=== PATIENT | male | born 1945 | race Caucasian/White ===

== ENCOUNTER 2024-08-30 17:53 | Observation (INO) | payer MEDICARE ==
[~2024-08-30] VITALS: Ht 175.3 cm; Wt 75.0 kg
--- NOTE | 2024-08-30 18:07 | ELECTROCARDIOGRAPH REPORT ---
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 Remi Doyle Measurements Intervals [place] Rate: 86 P: 0 [place]: 237 QRS: -40 QRSD: 99 T: 22 QT: 415 QTc: 497 Interpretive Statements Sinus rhythm Ventricular bigeminy Prolonged [place] interval Left axis deviation Electronically Signed On 08-30-2024 19:21:[address] Remi Doyle Please click the below link to view image of tracing.
--- NOTE | 2024-08-30 18:26 | RADIOLOGY REPORT ---
Clinical History CP Comparison None Without Contrast TAMMYSUSSY LARA, [id number] Technique: Single view portable chest x-ray Findings: Pericardial pacing pad is seen projecting over the left lower hemithorax. Minimum left basilar atelectasis. The lungs are otherwise unremarkable. No pleural abnormality. Atherosclerotic calcification of thoracic aorta. The cardiomediastinal silhouette is otherwise unrema rkable for an AP view. No acute osseous abnormality. The imaged part of the upper abdomen is unremarkable. Impression: No evidence of acute cardiopulmonary disease This report was electronically signed by César Leone MD on 08/30/2024 6:24:14 PM.
[2024-08-30 18:45] LABS: BASOPHILS # (AUTO) 0.1 X10'3 (0-0.2); BASOPHILS % (AUTO) 0.9 % (0-1); EOSINOPHILS # (AUTO) 0.2 X10'3 (0-0.9); EOSINOPHILS % (AUTO) 3.5 % (0-6); HEMATOCRIT 41.9 % (42.0-52.0); HEMOGLOBIN 14.3 g/dl (14.0-17.9); LYMPHOCYTES # (AUTO) 1.1 X10'3 (1.1-4.8); MEAN CORPUSCULAR HEMOGLOBIN 31.7 PG (27.0-31.0); MEAN CORPUSCULAR HGB CONC 34.1 g/dL (33.0-36.5); MEAN CORPUSCULAR VOLUME 93.1 FL (78-98); MEAN PLATELET VOLUME 8.1 FL (7.4-10.4); MONOCYTES # (AUTO) 0.5 X10'3 (0-0.9); MONOCYTES % (AUTO) 7.4 % (2-12); NEUTROPHILS # (AUTO) 4.7 X10'3 (1.8-7.7); NEUTROPHILS % (AUTO) 71.2 % (42-75); PLATELET COUNT 231 X10'3 (140-440); RED CELL DISTRIBUTION WIDTH 14.2 % (11.5-14.5); WHITE BLOOD COUNT 6.6 X10'3 (4.5-11.0)
[2024-08-30 19:09] LABS: ALANINE AMINOTRANSFERASE 24 U/L (12-78); ALBUMIN 3.5 G/DL (3.4-5.0); ALBUMIN/GLOBULIN RATIO 1.1 (1.1-1.5); ALKALINE PHOSPHATASE 78 IU/L (46-116); ANION GAP 8 (8-16); ASPARTATE AMINO TRANSFERASE 12 U/L (10-37); BILIRUBIN,TOTAL 0.6 MG/DL (0.1-1.0); BLOOD UREA NITROGEN 16 MG/DL (7-18); BUN/CREATININE RATIO 9.9 (10.0-20.0); CALCIUM 8.7 MG/DL (8.5-10.1); CHLORIDE 104 MMOL/L (99-107); CREATININE 1.61 MG/DL (0.60-1.10); GLUCOSE 88 MG/DL (70-104); POTASSIUM 3.9 MMOL/L (3.5-5.1); PRO BRAIN NATRIURETIC PEPTIDE 634 PG/ML (0-450); SODIUM 137 MMOL/L (135-145); TOTAL PROTEIN 6.8 G/DL (6.4-8.2); eCRCL 35 ML/MIN; eGFR 41 ML/MIN
--- NOTE | 2024-08-30 21:41 | Physician Documentation ---
History of Present Illness ~ Chief Complaint: See Chief Complaint Stated Complaint: BRADYCARDIA Time Seen by MD: 18:30 OK to notify your PCP?: Yes Source: patient, RN/MD, EMS, old records Mode of Arrival: EMS Exam Limitations: no limitations, other HPI 79 year old male presents as a transfer from [place] due to brandycardia issues. HPI from [place]: 79 year old male sent to ER for evaluation of brandycardia. I spoke with his PCP who noted HR of 35 in office. BP maintained. He states he has been asymptomatic. No report of chest pain, palpitations, near syncope/syncope. However he was seen at May of this year for syncope. No cardiac referral from that episode. No beta caren use. Medication Reconciliation Allergies: Coded Allergies: No Known Allergies (Unverified , 08/30/24) Scheduled Losartan Potassium (Losartan Potassium), 1 TAB PO DAILY, (Reported) Rosuvastatin Calcium (Rosuvastatin Calcium), 1 TAB PO DAILY, (Reported) Past Medical History Past Medical History: Hypertension, Chronic Kidney Disease Review of Systems All Other Systems at this time: Reviewed and Negative ROS As stated above in the HPI, otherwise all systems are reviewed and negative. Physical Exam Vital Signs: RN Vital Signs have been reviewed: Yes, Temperature: 97.8, Heart Rate: 75, Respiratory Rate: 15, BP: 177/91, Pulse Oximetry: 96, Weight: 75.000 Pulse Oximetry Reflects: adequate oxygenation Physical Exam General: The patient is well developed, well nourished, nontoxic appearing and is in no acute distress. Skin: [place], warm and dry with no rashes. HEENT: Head was normocephalic and atraumatic. Eyes - pupils equal, round, reactive to light and accommodation. Extraocular movements were intact. Conjunctivae were nonicteric. Ears - bilateral tympanic membranes were normal. The mouth and oropharynx were clear with moist mucous membranes. There were no pharyngeal exudates or erythema. Neck: Supple and nontender. There was no jugular venous distention, lymphadenopathy, thyromegaly or masses. Chest: Clear to auscultation bilaterally without wheezes, rales or rhonchi. No accessory muscle use. No dullness to percussion. Heart: Slow heart rate. S1, S2. No murmurs. Palpation of the chest wall was normal. No rubs or thrills. Abdomen: Soft, nontender and nondistended. Positive bowel sounds. No guarding or rebound. No hepatosplenomegaly or palpable masses. Extremities: No cyanosis, clubbing or edema. The patient moves all extremities. Pulses were equal and symmetric. Neurologic: Cranial nerves II-XII were intact. Sensation was intact to light touch throughout. Motor strength was 5/5 in all four extremities. Deep tendon reflexes were intact in both upper and lower extremities. Psychologic: The patient was oriented to person, place and time. The patient demonstrated appropriate judgement and insight. Progress Progress Note 2200: The case was discussed with the hospitalist who was informed on the patients case and kindly agreed to admission. Results/Orders Reviewed/noted all lab results: Yes Results/Orders Orders - GREG DOYLE MD Page Hospitalist (08/30/24 21:54) Fill Out Med Reconciliation (08/30/24 21:54) Completed Orders - GREG DOYLE MD Pt Inr (08/30/24 21:49) PTT (08/30/24 21:49) Troponin (Single) (08/30/24 23:50) Aspirin 81mg Chew Tablet (Aspirin 81mg C (08/30/24 22:15) Laboratory Tests Test 08/30/24 18:36 08/30/24 20:31 White Blood Count 6.6 Red Blood Count 4.50 L Hemoglobin 14.3 Hematocrit 41.9 L Mean Corpuscular Volume 93.1 Mean Corpuscular Hemoglobin 31.7 H Mean Corpuscular Hemoglobin Concent 34.1 Red Cell Distribution Width 14.2 Platelet Count 231 Mean Platelet Volume 8.1 Neutrophils (%) (Auto) 71.2 Lymphocytes (%) (Auto) 17.0 L Monocytes (%) (Auto) 7.4 Eosinophils (%) (Auto) 3.5 Basophils (%) (Auto) 0.9 Neutrophils # (Auto) 4.7 Lymphocytes # (Auto) 1.1 Monocytes # (Auto) 0.5 Eosinophils # (Auto) 0.2 Basophils # (Auto) 0.1 CBC Comment Prothrombin Time 10.9 INR International Normalized Ratio 1.1 Activated Partial Thromboplast Time 29 Coagulation Comments Sodium Level 137 Potassium Level 3.9 Chloride Level 104 Carbon Dioxide Level 25.0 Anion Gap 8 Blood Urea Nitrogen 16 Creatinine 1.61 H Estimated GFR/1.73 m2 41 BUN/Creatinine Ratio 9.9 L Glucose Level 88 Calcium Level 8.7 Magnesium Level 2.3 Total Bilirubin 0.6 Aspartate Amino Transf (AST/SGOT) 12 Alanine Aminotransferase (ALT/SGPT) 24 Alkaline Phosphatase 78 Troponin I High Sensitivity 26 28 Pro-B-Type Natriuretic Peptide 634 H Total Protein 6.8 Albumin 3.5 Globulin 3.3 Albumin/Globulin Ratio 1.1 Chemistry Comments Troponin I High Sens Percent Delta 7 Troponin I Hi Sens Absolute Change 2 Re-Evaluation Re-Evaluation : Re-Evaluation: Improved Progress This patient was transferred from [facility]. Review of the medical record patient received a dose of aspirin. Laboratory work was reobtained. Patient was having bradycardia with a heart rate in the 30s 40s. Upon arrival patient is heart rates in the 70s. Additional fluids were given IV lines were already established labs were drawn. Afterwards I contacted the hospitalist who kindly agreed to admit the patient for further workup and care. Laboratory work showed some renal insufficiency with a creatinine of 1.61 also troponin x2 were both negative. Continuous k 9 handler/ deputy interpretation shows normal sinus rhythm heart rate 70s, no ectopy, normal, my interpretation. Pulse oximetry monitor interpretation shows normal oxygenation at 96% room air, normal, my interpretation. 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 Greg Doyle Measurements Intervals [place] Rate: 86 P: 0 [place]: 237 QRS: -40 QRSD: 99 T: 22 QT: 415 QTc: 497 Interpretive Statements Sinus rhythm Ventricular bigeminy Prolonged [place] interval Left axis deviation Electronically Signed On 08-30-2024 19:21:[address] Greg Doyle Please click the below link to view image of tracing. EKG Date and Time:08/30/241750 Electronically Signed by: GREG DOYLE MD Date and Time: 08/30/241920 Chest X-Ray : Additional Comments Clinical History CP Comparison None Without Contrast SUSSY MUNOZ, [id number] Technique: Single view portable chest x-ray Findings: Pericardial pacing pad is seen projecting over the left lower hemithorax. Minimum left basilar atelectasis. The lungs are otherwise unremarkable. No pleural abnormality. Atherosclerotic calcification of thoracic aorta. The cardiomediastinal silhouette is otherwise unremarkable for an AP view. No acute osseous abnormality. The imaged part of the upper abdomen is unremarkable. Impression: No evidence of acute cardiopulmonary disease This report was electronically signed by César Nye MD on 08/30/2024 6:24:14 PM. Electronically Signed by:CÉSAR NYE MD Date & Time: 08/30/24 182 Heart Score: Heart Score Response (Comments) Value History Slightly Suspicious 0 EKG Repolarization Disturb 1 Age >65 2 Risk Factors 1 or 2 risk factors 1 Troponin Normal limit 0 Total 4 Medical Decision Making Additional info obtained from: old records Differential Dx:Considerations: Include: angina, aortic dissection, chest wall pain, cholelithiasis, CHF, costochondritis, esophageal reflux/spasm, gastritis, herpes zoster, myocardial infarction, pericarditis, pleuritis, pancreatitis, pneumonia, pneumothorax, pulmonary embolus, other Departure Time of Disposition: 22:00 Disposition: 09 ADMITTED INPATIENT Admitted to Inpatient Unit: yes, to hospitalist Admission Level of Care: PCU with Tele Impression: Primary Impression: Bradycardia Condition: Guarded Referrals: NO PRIMARY CARE PROVIDER (PCP) Education Educated: Patient Educated regarding: diagnosis Critical Care Note Total Time (mins): 30 Critical Care Note The very real possibility of a deterioration of this patient's condition required the highest level of my preparedness for sudden, emergent intervention. I provided critical care services, which included medication orders, frequent reevaluations of the patient's condition and response to treatment, ordering and reviewing test results, and discussing the case with various consultants. Excludes time spent performing separately billable procedures. The critical care time associated with the care of the patient was 30. Signature Scribe Signature: Scribed for Greg Doyle MD by Adriana Vega . 08/30/24 22:03 Attestation: The note accurately reflects work and decisions made by me.Greg Doyle MD 08/30/24 21:40 GREG DOYLE MD Aug 30, 2024 21:41 ADRIANA DOUGHERTY Aug 30, 2024 21:59
[2024-08-30 21:54] LABS: MAGNESIUM 2.3 MG/DL (1.5-2.4)
[2024-08-30] MEDS: aspirin 81mg tab.chew PO ONE (22:22)
[2024-08-30 22:45] LABS: APTT 29 SECONDS (22-32); INR 1.1 INR; PROTHROMBIN TIME 10.9 SECONDS (9.0-12.0)
[2024-08-30] MEDS ORDERED: magnesium sulf-water 2g/50mL 50 ML IV PRN (23:25)
[2024-08-30] MEDS ORDERED: mag hydrox/Alum hydrox/simeth 30ml oral suspension PO PRN (23:25)
[2024-08-30] MEDS ORDERED: magnesium hydroxide 30ml (MOM) UD suspension PO PRN (23:25)
[2024-08-30] MEDS ORDERED: ondansetron/PF 4mg/2ml inj IV PRN (23:25)
[2024-08-30] MEDS ORDERED: potassium Cl 20 mEq SR tablet PO PRN ×2 (23:25)
[2024-08-30] MEDS ORDERED: acetaminophen 325mg tablet PO PRN (23:25)
[2024-08-30] MEDS ORDERED: potassium Cl 40MEQ/1/2NS 520ml 520 ML IV PRN (23:25)
[2024-08-30] MEDS ORDERED: magnesium Cl slow-release 64mg tablet PO PRN (23:25)
[2024-08-30] MEDS ORDERED: magnesium sulf-water 4G/100mL 100 ML IV PRN (23:25)
[2024-08-30] MEDS ORDERED: PERFLUTREN PROTEIN-A MICROSPHR (Optison) 0.22 MG/ML 3ML VIAL IV PRN (23:30)
[2024-08-31] MEDS ORDERED: LOSA100T58 PO (01:17)
[2024-08-31] MEDS ORDERED: ROSU40TA89 PO (01:17)
--- NOTE | 2024-08-31 01:29 | HISTORY AND PHYSICAL-Residence ---
History & Physical Providers to CC Resident Creating Document: PIPE MAURO CC: POLLY ZAVALA MD ~ History of Present Illness Reason for Admit\Complaint: Bradycardia History of Present Illness Patient is a 79-year-old male with history of hypertension and stroke who came to the ED transferred from [place] due to bradycardia. According to ED report, patient was transferred due to heart rate between 20-30 bpm. Patient reports that he was at his PCP office, and there they noticed that his heart rate was significantly low, reason why patient was advised to go to the ED. Patient reports that he did not experience any symptoms at all and that he did not have slow heart rate in the past. He does have a history of the stroke in February of last year and he did follow with Dr. Guo after that, reporting that his visit was unremarkable. He does report one episode of lightheadedness 2-3 months ago which did not happen again. Allergies: Coded Allergies: No Known Allergies (Unverified , 08/30/24) Home Medications Home Medications Active Reported Rosuvastatin Calcium 40 Mg Tablet 1 Tab PO DAILY Losartan Potassium 100 Mg Tablet 1 Tab PO DAILY Past Medical History Past Medical History Hypertension Stroke in 02/2024 without sequela Past Surgical History Surgical History Comment Bilateral knee replacement Back surgery Cataracts Family History Family History: FH: dementia MOTHER Valvular heart disease FATHER Past Social History Smoking: Cigarettes (One pack a day since age 14) Alcohol Use: Other (1 or 2 beers/day) Drug Use: None Lives with: Spouse Lives In: Home Occupation: retired ROS ROS All systems were reviewed and found negative except pertinent positives mentioned in HPI Exam Vitals: Vital Signs Date Time Temp Pulse Resp B/P (MAP) Pulse Ox O2 Delivery O2 Flow Rate FiO2 08/31/24 01:19 67 16 161/72 (101) 99 0 08/30/24 23:00 98.1 General: General: awake, alert oriented to place, time, and person HEENT: No pallor present, no icterus, moist mucous membranes Neck: No masses and tenderness Resp: Unlabored. Lungs clear to auscultation bilaterally. Heart: Regular Rate and rhythm, normal S1 and S2 without murmur, rub or gallop Abdomen: Soft and non tender no organomegaly, no guarding and rigidity, bowel sounds present Neuro: No weakness in the upper and lower limb muscles, power of the muscles 5/5 bilateral upper and lower muscles, knee reflex present bilaterally. Cranial nerves intact Extremities: No cyanosis,clubbing or edema Skin: Warm and Dry. No lesions Diagnostic Data Last Recorded Lab Results: 08/30/24183508/30/241835 Diagnostic Data: Laboratory Tests Test 08/30/24 18:36 Prothrombin Time 10.9 SECONDS (9.0-12.0) INR International Normalized Ratio 1.1 INR Activated Partial Thromboplast Time 29 SECONDS (22-32) Coagulation Comments Advance Care Planning Advanced Care plannin - 30 Minutes Additional Plan Patient is a 79-year-old male with history of hypertension and stroke who came to the ED transferred from [place] due to severe bradycardia. Admitted for observation on tele. Asymptomatic bradycardia Elevated proBNP Hypertension History of stroke Patient has remained asymptomatic Heart rate has been stable between 60s and 70s EKG shows normal sinus rhythm with PVCs He does have elevated proBNP but no signs of fluid overload Will obtain echocardiogram in a.m. Will continue tele monitoring Continue home meds. Pending med rec DARCIE, likely prerenal secondary to vasomotor nephropathy No history of kidney disease Creatinine is 1.6 Will obtain kidney ultrasound, urinalysis and spot tests Continue monitoring BMP Code Status: DNR DVT prophylaxis: Heparin Prognosis:Guarded Disposition: Admit as all obs with tele monitoring. Echo in a.m. possible discharge in a.m. Pipe Wang MD Internal Medicine Resident PGY-1 Date of Service: Aug 31, 2024 Billing Provider: POLLY ZAVALA MD Common Visit Codes: [id number] INP/OBS CARE (HIGH) Assessment/Plan Assessment Evaluated the patient with the help of residents. Discussed the case with them. Additionally I reviewed the patient's records labs radiology and provider notes. I have reviewed notes by Admitting resident. Agree with his assessments and plans. I have. Will continue no additional points at this time. Continue the present strategy. PIPE MAURO Aug 31, 2024 01:29 POLLY ZAVALA MD Aug 31, 2024 05:32
[2024-08-31 01:55] VITALS: BP 135/63; PULSE 72; RESP 18; TEMP 97.6; O2SAT 96
[2024-08-31 03:59] VITALS: RESP 18; O2SAT 94
[2024-08-31 06:00] VITALS: BP 160/68; PULSE 56; RESP 16; TEMP 97.9; O2SAT 95
[2024-08-31 06:17] LABS: BILIRUBIN,URINE NEGATIVE (Neg); CLARITY,URINE CLEAR (Clear); COLOR,URINE YELLOW (Yellow); GLUCOSE, URINE NEGATIVE (Neg); KETONES,URINE NEGATIVE (Neg); LEUKOCYTE ESTERASE ,URINE NEGATIVE (Neg); NITRITES, URINE NEGATIVE (Neg); OCCULT BLOOD,URINE NEGATIVE (Neg); PROTEIN,URINE NEGATIVE (Neg); UROBILINOGEN,URINE 0.2 E.U/dL (0.2-1.0)
[2024-08-31 06:22] LABS: BASOPHILS # (AUTO) 0.1 X10'3 (0-0.2); BASOPHILS % (AUTO) 1.2 % (0-1); EOSINOPHILS # (AUTO) 0.3 X10'3 (0-0.9); EOSINOPHILS % (AUTO) 5.4 % (0-6); HEMATOCRIT 40.2 % (42.0-52.0); LYMPHOCYTES # (AUTO) 1.1 X10'3 (1.1-4.8); LYMPHOCYTES % (AUTO) 21.1 % (21-51); MEAN CORPUSCULAR HEMOGLOBIN 32.1 PG (27.0-31.0); MEAN CORPUSCULAR HGB CONC 34.8 g/dL (33.0-36.5); MEAN CORPUSCULAR VOLUME 92.3 FL (78-98); MEAN PLATELET VOLUME 8.2 FL (7.4-10.4); MONOCYTES # (AUTO) 0.5 X10'3 (0-0.9); MONOCYTES % (AUTO) 9.9 % (2-12); NEUTROPHILS # (AUTO) 3.3 X10'3 (1.8-7.7); NEUTROPHILS % (AUTO) 62.4 % (42-75); PLATELET COUNT 216 X10'3 (140-440); RED BLOOD COUNT 4.36 X10'6 (4.70-6.10); RED CELL DISTRIBUTION WIDTH 14.3 % (11.5-14.5); WHITE BLOOD COUNT 5.3 X10'3 (4.5-11.0)
[2024-08-31 06:22] LABS: TOTAL PROTEIN,URINE RANDOM 13.2 MG/DL
[2024-08-31 06:24] LABS: UA COLLECTION TYPE CLN CATCH MIDSTREAM
[2024-08-31 06:34] LABS: ALANINE AMINOTRANSFERASE 25 U/L (12-78); ALBUMIN 3.3 G/DL (3.4-5.0); ALKALINE PHOSPHATASE 65 IU/L (46-116); ANION GAP 7 (8-16); ASPARTATE AMINO TRANSFERASE 14 U/L (10-37); BILIRUBIN,TOTAL 0.6 MG/DL (0.1-1.0); BLOOD UREA NITROGEN 15 MG/DL (7-18); BUN/CREATININE RATIO 10.1 (10.0-20.0); CALCIUM 8.6 MG/DL (8.5-10.1); CHLORIDE 105 MMOL/L (99-107); CREATININE 1.49 MG/DL (0.60-1.10); GLUCOSE 84 MG/DL (70-104); MAGNESIUM 2.1 MG/DL (1.5-2.4); SODIUM 137 MMOL/L (135-145); TOTAL CARBON DIOXIDE 24.7 MMOL/L (24-32); TOTAL PROTEIN 6.5 G/DL (6.4-8.2); eCRCL 40 ML/MIN; eGFR 45 ML/MIN
[2024-08-31 06:56] LABS: UA EOSINOPHILS NO EOS /HPF
[2024-08-31 08:00] VITALS: RESP 16; O2SAT 95
[2024-08-31] MEDS: K and/or MAG REPLACEMENT MC SCH (08:00)
[2024-08-31] MEDS: docusate sod 100mg capsule PO SCH (08:00)
--- NOTE | 2024-08-31 09:05 | RADIOLOGY REPORT ---
INDICATION: DARCIE TECHNIQUE: Multiple real-time sonographic images of the kidneys and bladder were obtained. COMPARISON: None FINDINGS: The right kidney measures 11.2 cm in length, which is normal in size. There is increased ec hogenicity of the right kidney. Moderate right hydronephrosis. The left kidney measures 11.6 cm in length, which is normal in size. There is increased echogenicity of the left kidney. No hydronephrosis. No large intraluminal masses are seen in the bladder. Prior to voiding the bladder volume measures vo lume 209 cc. Following voiding, the bladder volume residual measures 0 cc. IMPRESSION: Echogenic bilateral kidneys suggestive of chronic medical renal disease. Moderate right hydronephros is.
[2024-08-31 10:00] VITALS: BP 162/61; PULSE 55; RESP 17; TEMP 98.1; O2SAT 96
--- NOTE | 2024-08-31 16:43 | DISCHARGE SUMMARY-Residence ---
Discharge Summary Providers to CC Resident Creating Document: ANNI BARRIOS, RES ~ Discharge Summary Admission Diagnosis: BRADYCARDIA Hospital Course DATE OF ADMISSION: 08/30/2024 DATE OF DISCHARGE: 08/31/2024 Discharge Diagnosis\Comment: # Asymptomatic bradycardia which was not recorded on telemetry during hospitalization # nonspecific elevation of proBNP probably from hypertensive CHF component Vs A KI # DARCIE-prerenal from renal tubular stasis # hypertension # history of CVA Operations\Procedures: None Consultants: None Complications: None Condition on DC: Stable Continued Medications: Losartan Potassium (Losartan Potassium) 100 Mg Tablet 1 TAB PO DAILY Rosuvastatin Calcium (Rosuvastatin Calcium) 40 Mg Tablet 1 TAB PO DAILY Discharge Summary: An 79-year-old male with a past medical history of hypertension, CVA, hyperlipidemia, s/p bilateral knee replacement, back surgery, cataract extraction surgery presented to ER for the asymptomatic bradycardia (20-30 beats per minute as per ER record) for cardiology management and consultation who was transferred from [facility]. So he was admitted to the hospital for cardiology consultation in the morning. Hospital course: Patient endorsed one episode of lightheadedness 2-3 months ago but not on the admission, however, denies any other symptoms including chest pain, pressure, discomfort, lightheadedness and dizziness, and any other similar history in the past. His stubber is Dr. Guo and no significant previous medical records was noted from his last visit to Dr. Guo. Patient remained asymptomatic throughout his hospital stay. Heart rate recorded on continuous telemetry monitoring showing between 60s and 70s with a having any symptoms. EKG showed normal sinus rhythm with PVCs which could probably showing abnormal reading on the monitor with 20-30 beats per minute in ER record. Although his proBNP was elevated with 634 his creatinine show 1.6 and EGFR 41 on admission. He has underwent renal ultrasound on 08/31/2024 showed Echogenic bilateral kidneys suggestive of chronic medical renal disease. Moderate right hydronephrosis. He also has a 2D echocardiogram with the preliminary report showed that mild concentric hypertrophy, LVEF 60-65%, elevated right heart pressure with RVSP 32 mm Hg, LA normal, mild multidrug MR, TR, normal pericardium and no effusion. He did not have any exacerbation of CHF signs and symptoms on admission and during his stay. Chest x-ray showed no evidence of cardiopulmonary disease. All of his home medications including rosuvastatin and losartan were reconciled and continue appropriately. All of his concerns and questions were addressed before discharge in the best of knowledge. Today, all of his vitals were stable with heart rate of 64/minute and BP 160/60 mm Hg, pulse oximetry 95% on nasal cannula 1 L. All of his labs were reviewed showed WNL including trending down of creatinine to 1.49 from 1.61, normal CBC. On exam, General: Well alert, well oriented, not confused, not agitated, not in acute distress, well cooperated during the physical. HEENT: Conjunctive are pink, sclerae clear, no icterus, pupil is equal in both sides, reactive to light, no ear discharge, no pharyngeal erythema or an edema, mouth and lips are moist. Neck: Supple, no JVD, no lymphadenopathy and thyromegaly. Lungs:Equal air entry on both lungs, no additional sounds Heart: S1-S2 regular sinus rhythm and, regular rate, no gallops, no rubs, no murmurs Abdomen: No visible peristalsis, Bowel sounds present on auscultation, soft, nontender, no guarding, no rigidity Extremities: No obvious deformities, no pitting edema bilaterally, capillary refill intact, able to wiggle toes both sides, peripheral pulsations are intact on both sides FABRIC AND ACCESSORIES ESTIMATOR: No focal neurological deficits, no motor and sensory weakness in all 4 extremities, could move all 4 extremities Musculoskeletal: No joint swelling, deformities, inflammations, and no scoliosis and back tenderness Skin: No active skin lesions and rashes Discharge instructions: -immediate return to ER for the intolerable chest pain/pressure/discomfort, severe hypotension, passing out, severe lightheadedness and dizziness, nausea and vomiting etc. -medication compliance -follow up with PCP and Cardiology in outpatient setting with a possible continuous monitoring for further management Resident MD attestation: Patient was seen and examined with attending MD, Dr. Andreia BARRIOS MD Internal Medicine Resident, PGY2 [facility] *Problems/Diagnosis: (1) Bradycardia Status: Resolved Total Time Spent on D/C: > 30 Minutes Date of Service: Aug 31, 2024 Billing Provider: JAQUELINE PINZON MD Common Visit Codes: 06369-SPP/OBS DISCH DAY >30min ANNI BARRIOS RES Aug 31, 2024 16:30 JAQUELINE PINZON MD Aug 31, 2024 21:26
[2024-08-31] MEDS ORDERED: enoxaparin 40mg/0.4ml syringe SQ SCH (20:00)
--- NOTE | 2024-08-31 20:20 | CARDIOLOGY REPORT ---
APPROVED REPORT EXAM: Comprehensive 2D, Doppler, and color-flow Echocardiogram. Patient Location: 302 Blood Pressure: 135/63 mmHg Heart Rate: 58 bpm Indications Bradycardia ProBNP: 634 Hypertension NO EXPORT ADMINISTRATOR NO Previous Echo 2D Dimensions LA Diam3.5 cm IVSd 1.3 (0.7-1.1cm) LVDd 4.3 cm PWd 1.2 (0.7-1.1cm) IVSs 1.6 (0.8-1.2cm) LVDs 2.9 (2.5-4.0cm) PWs 1.4 (0.8-1.2cm) LVOT Diameter 2.21 (1.8-2.4cm) LVEF(%) 63.2 (>50%) Ao Asc Diam.2.82 cm IVC 15.91 mmFS (%) 34.0 % SV 53.3 ml CO 3.0 L/min M-Mode Dimensions Left Atrium(MM) 3.89 (2.5-4.0cm) Aortic Root 3.07 (2.2-3.7cm) Aortic Cusp Exc 2.06 (1.5-2.0cm) Aortic Valve AoV Peak Carlos. 127.7 cm/s AoV VTI 25.5 cm AO Peak GR. 6.5 mmHg AO Mean GR. 4 mmHg LVOT VTI 22.20 cm LVOT Peak Carlos. 98.5 cm/s ASYA(VTI)/BSA 3.35 cm2/m2 ASYA (VTI) 3.35 cm2 Mitral Valve MV E Velocity 72.8 cm/s MV Peak Gr. 3 mmHg MV DECEL TIME 204 ms MV A Velocity 91.5 cm/s MV PHT 88 ms E/A Ratio 0.8 MVA (PHT) 2.50 cm2 MV VMax79.9 cm/s TDI Lateral E' P. V9.74 cm/s E/Lateral E' 7.5 Tricuspid Valve TR P. Velocity 233 cm/s RAP ESTIMATE 10 mmHg TR Peak Gr. 22 mmHg RVSP 32 mmHg LEFT VENTRICLE Normal LV size and function. Mild concentric hypertrophy. LVEF is 60-65%. RIGHT VENTRICLE RV is normal size and function. Elevated right heart pressures as noted above. ATRIA The left atrium size is normal. AORTIC VALVE Trileaflet AV appears mildly sclerotic without stenosis. No insufficiency. MITRAL VALVE Mild mitral annular calcification without stenosis. Mild multijet regurgitation. TRICUSPID VALVE The tricuspid valve is normal in structure with trace regurgitation. PULMONIC VALVE The pulmonary valve is normal in structure with physiologic insufficiency. GREAT VESSELS The aortic root is normal in size. The ascending aorta is normal in size. The IVC is normal in size a nd collapses >50% with inspiration. PERICARDIUM Normal pericardium. No effusion. Other Information Study Quality: Adequate Conclusion Normal LV size and function. Mild concentric hypertrophy. LVEF is 60-65%. RV is normal size and function. Elevated right heart pressures as noted above.ith an RVSP of 32 mmHg . The left atrium size is normal. Trileaflet AV appears mildly sclerotic without stenosis. No insufficiency. Mild mitral annular calcification without stenosis. Mild multijet regurgitation. The tricuspid valve is normal in structure with trace regurgitation. Normal pericardium. No effusion.
== END 2024-08-31 11:30 | disposition home or self-care (01) ==
LOC: ER 17:53 → ED HOLD 23:26 → EDBEDREQ 08-31 00:57 → PCU 3S 08-31 01:57
PROVIDERS: ADMIT Internal Medicine Critical Care Medicine; ATTEND Internal Medicine
DX: R00.1 Bradycardia, unspecified (principal); R42 Dizziness and giddiness; R79.1 Abnormal coagulation profile; R60.1 Generalized edema; Z79.899 Other long term (current) drug therapy; Z98.890 Other specified postprocedural states
CPT/HCPCS: 76770; 80053; 81003; 82570; 83735; 83880; 84156; 84300; 84484; 85610; 85730; 87207; 93005; 93306; 99291; G0378; 36415; 71045; 85025; 87081